=== PATIENT | female | born 1965 | race Two or more races ===

== ENCOUNTER 2018-06-25 09:06 | Outpatient (CLI) | payer OTHER ==
[~2018-06-25 09:06] MED LIST: PNEU16DI2
== END 2018-06-25 16:40 | disposition home or self-care (01) ==
LOC: RX STUDY 09:06
DX: R10.84 Generalized abdominal pain (principal)

== ENCOUNTER 2018-06-26 13:55 | Outpatient (CLI) | payer OTHER | END 2018-06-26 14:31 | disposition home or self-care (01) | LOC: TOM 13:55 | DX: R91.1 Solitary pulmonary nodule (principal) ==

== ENCOUNTER → 2018-08-08 | Day surgery (SDC) | payer OTHER ==
[~2018-08-08] MED LIST changes: +MIRALAX17 GM PO; +TRAMADOL HCL50 MG PO; +TYLENOL EXTRA500 MG PO; +ZOFRAN4 MG PO
== END | disposition home or self-care (01) ==
LOC: ADM 07-30 15:30 → CIR.AMB 08-03 15:30
DX: K80.10 Calculus of gallbladder with chronic cholecystitis without obstruction (principal)

== ENCOUNTER 2018-12-11 13:08 | Outpatient (CLI) | payer OTHER | END 2018-12-11 13:14 | disposition home or self-care (01) | LOC: SONOGRAMA 13:08 | DX: R10.2 Pelvic and perineal pain (principal) ==

== ENCOUNTER → 2019-02-12 | Outpatient (CLI) | payer OTHER | END | disposition home or self-care (01) | LOC: RAD 15:14 | DX: M79.641 Pain in right hand (principal); M79.642 Pain in left hand; M25.551 Pain in right hip; M25.552 Pain in left hip; M25.562 Pain in left knee; M25.561 Pain in right knee ==

== ENCOUNTER 2021-08-03 12:49 | Emergency (ER) | payer OTHER ==
[~2021-08-03] VITALS: Ht 157.5 cm; Wt 58.1 kg
== END 2021-08-03 14:39 | disposition home or self-care (01) ==
LOC: ER 12:49
DX: U07.1 COVID-19 (principal); B34.9 Viral infection, unspecified

== ENCOUNTER 2024-02-01 17:13 | Emergency (ER) | payer OTHER ==
[~2024-02-01] VITALS: Ht 157.5 cm; Wt 61.7 kg
[2024-02-01] MEDS ORDERED: 0.9 % SODIUM CHLORIDE 1,000 ML IV ONE (20:45)
[2024-02-01] MEDS ORDERED: ONDANSETRON HCL 2 MG/ML VIAL IV ONE (20:45)
[2024-02-01] MEDS ORDERED: HYOSCYAMINE SULFATE 0.125 MG TAB.SUBL SL ONE (20:45)
[2024-02-01 21:00] LABS: HEMATOCRIT 40.6 % (36.0-45.00); HEMOGLOBIN 13.9 g/dL (12.0-15.00); MEAN CELL VOLUME 87.6 fL (80.00-100.00); MEAN CORPUSCULAR HGB CONC 34.3 g/dl (32.0-36.0); PLATELET COUNT 232 K/uL (150-450); RED BLOOD COUNT 4.64 M/uL (4.00-6.00); RED CELL DISTRIBUTION WIDTH 14.1 % (11.5-14.5)
[2024-02-01 21:33] LABS: ALBUMIN 3.5 gm/dL (3.4-5.0); BILIRUBIN TOTAL 0.93 mg/dL (0.3-1.2); CALCIUM 8.8 mg/dL (8.5-10.1); CREATININE SERUM 0.63 mg/dL (0.55-1.02); GFR 97.4; GLOBULINA 3.6 G/DL (2.4-3.5); POTASSIUM 3.49 mEq/L (3.5-5.1); TOTAL PROTEIN 7.1 gm/dL (6.4-8.2)
[2024-02-02 00:15] LABS: PH,URINE 6.5 (5.0-8.0); URINE APPEARANCE Clear; URINE BILIRRUBIN Negative (NEGATIVE); URINE BLOOD Negative; URINE COLOR Yellow; URINE GLUCOSE Negative (NEGATIVE); URINE KETONE Trace (NEGATIVE); URINE LEUKOCYTE Small; URINE NITRATE Negative; URINE PROTEIN Negative (NEGATIVE)
[2024-02-02 00:19] LABS: URINE BACTERIA 353.9 uL (0.0-1933); URINE EPITHELIAL CELLS 16.8 uL (0.0-38.8); URINE WBC 23.9 uL (0.0-23.2)
== END 2024-02-02 00:15 | disposition home or self-care (01) ==
LOC: ER 17:15
PROVIDERS: General Practice
DX: K52.9 Noninfective gastroenteritis and colitis, unspecified (principal); R11.10 Vomiting, unspecified; R10.9 Unspecified abdominal pain; Z20.822 Contact with and (suspected) exposure to COVID-19